=== PATIENT | female | born 1980 | race African-American/Black ===

== ENCOUNTER 2020-06-01 13:51 | Emergency (ER) | payer MEDICAID ==
[~2020-06-01] VITALS: Ht 162.6 cm; Wt 51.0 kg
[2020-06-01] MEDS ORDERED: ACETAMINOPHEN WITH CODEINE 300/30MG TABLET PO NR (14:15)
[2020-06-01 16:35] VITALS: BP 108/70
== END 2020-06-01 16:35 | disposition home or self-care (01) ==
LOC: ER 14:08
DX: S93.491A Sprain of other ligament of right ankle, initial encounter (principal); S80.01XA Contusion of right knee, initial encounter; V03.00XA Pedestrian on foot injured in collision with car, pick-up truck or van in nontraffic accident, initial encounter; W22.8XXA Striking against or struck by other objects, initial encounter; Y93.89 Activity, other specified; Y92.481 Parking lot as the place of occurrence of the external cause
CPT/HCPCS: 73560; 73610; 99284